=== PATIENT | male | born 1950 | race Caucasian/White ===

== ENCOUNTER 2023-12-05 15:51 | Outpatient (CLI) | payer MEDICARE, SELFPAY ==
--- NOTE | ~2023-12-05 | CT_ITS ---
EXAMINATION: CT abdomen pelvis wo/w con DATE: 12/05/2023 17:23 INDICATION: Gross hematuria TECHNIQUE: Computed tomography (CT) of the abdomen and pelvis was performed without intravenous contr ast. CT of the abdomen and pelvis was then performed with a total of 130 mL Omnipaque-350 intravenous contrast using a double-bolus technique for simultaneous opacification of the renal parenchyma and r enal collecting system. Automated exposure control and iterative reconstruction technique were employ ed. The dose-length product was 1155.80 mGy-cm. COMPARISON: None FINDINGS: Lung bases are clear. Heart size is normal. Atherosclerotic coronary artery calcification. No pericar dial or pleural effusion. Liver, gallbladder, pancreas and bilateral adrenal glands are normal. 12 mm low-attenuation splenic lesion most likely a cyst or hemangioma. A few scattered splenic calcificati ons consistent with old granulomatous disease. Kidneys are normal with normal symmetric parenchymal e nhancement. No renal lesions or urolithiasis. The bilateral renal collecting systems and ureters are opacified in their near entirety with no urothelial irregularities. Bladder is normal with bilateral ureteral jets. Prostatomegaly. Bowels including the appendix are normal. Small left and moderate-size d right fat-containing inguinal hernias. No free intraperitoneal gas or fluid. No pathologically enla rged abdominal or pelvic lymphadenopathy. Moderate to severe lower lumbar spondylosis with mild spond ylosis in the more cephalad lumbar and lower thoracic spine. IMPRESSION: 1. Normal bilateral kidneys and ureters with no urolithiasis or urothelial irregularities. 2. Prostatomegaly. Reviewed, dictated and finalized at location A. IMPRESSION: 1. Normal bilateral kidneys and ureters with no urolithiasis or urothelial irre gularities. 2. Prostatomegaly.
[2023-12-05 17:00] LABS: Estimated Glomerular Filt Rate > 60
== END 2023-12-05 15:52 | disposition home or self-care (01) ==
LOC: ANHIMG 15:53
PROVIDERS: Visit Provider Nurse Practitioner Family
DX: N40.0 Benign prostatic hyperplasia without lower urinary tract symptoms (principal); R31.0 Gross hematuria
CPT/HCPCS: 74178; Q9967